=== PATIENT | female | born 1970 | race Caucasian/White ===

== ENCOUNTER 2018-03-10 19:32 | Emergency (ER) | payer OTHER ==
[~2018-03-10] VITALS: Ht 165.1 cm; Wt 116.5 kg
[~2018-03-10 19:32] MED LIST: BENTYL20 MG PO; DESYREL12.5 MG PO; EFFEXOR XR150 MG PO; HYDROCODON-ACE1 EAC7 PO; IBUPROFEN800 MG PO; KEFLEX500 MG PO; PERCOCET 5/31 TABLET PO; SKELAXIN800 MG PO; TRAMADOL HCL50 MG PO; ZYRTEC10 M2 PO
[2018-03-10] MEDS ORDERED: ULTRAM50 MG PO (22:21)
[2018-03-10 22:43] VITALS: BP 141/87
== END 2018-03-10 22:44 | disposition home or self-care (01) ==
LOC: EME 19:32
DX: M25.511 Pain in right shoulder (principal); M79.7 Fibromyalgia; K58.9 Irritable bowel syndrome, unspecified
CPT/HCPCS: 99281; 99283; J1885